=== PATIENT | male | born 1960 | race Caucasian/White ===

== ENCOUNTER 2017-09-01 14:06 | Emergency (ER) | payer BC ==
[2017-09-01] MEDS ORDERED: Sodium Chloride 0.9% 2.5 ML Syringe FLUSH PRN (14:11)
[2017-09-01] MEDS ORDERED: Sodium Chloride 0.9% 10 ML Syringe FLUSH PRN (14:11)
[2017-09-01] MEDS ORDERED: Albuterol/Ipratropium 3.0-0.5 MG/3 ML Neb Soln NEB ONE (14:12)
--- NOTE | 2017-09-01 14:14 | EDM.PDOC ---
ED HPI GENERAL MEDICAL PROBLEM - General Stated Complaint: SOB Time Seen by Provider: 09/01/17 14:07 Source of Information: Reports: Patient History Limitations: Reports: No Limitations - History of Present Illness INITIAL COMMENTS - FREE TEXT/NARRATIVE: History of present illness: []Patient started having fevers, body aches and cough 5 days ago with a temp of 102.5. 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 Patient denies having any cardiac history, leg swelling or chest pain Review of systems: As per history of present illness and below otherwise all systems reviewed and negative. Past medical history: As per history of present illness and as reviewed below otherwise noncontributory. Surgical history: As per history of present illness and as reviewed below otherwise noncontributory. Social history: No reported history of drug or alcohol abuse. Family history: As per history of present illness and as reviewed below otherwise noncontributory. Physical exam: General: Well developed, well nourished in NAD HEENT: Atraumatic, normocephalic, pupils reactive, negative for conjunctival pallor or scleral icterus, mucous membranes moist, throat clear, neck supple, nontender, trachea midline. Lungs: Clear to auscultation, breath sounds equal bilaterally faint expiratory wheezes in the right base no rhonchi or accessory muscle use, chest nontender. Heart: S1S2, regular, negative for clicks, rubs, or JVD. Abdomen: Soft, nondistended, nontender. Negative for masses or hepatosplenomegaly. Negative for costovertebral tenderness. Pelvis: Stable nontender. Genitourinary: Deferred. Rectal: Deferred. Extremities: Atraumatic, negative for cords or calf pain. Neurovascular unremarkable. Neuro: Awake, alert, oriented. Cranial nerves II through XII unremarkable. Cerebellum unremarkable. Motor and sensory unremarkable throughout. Exam nonfocal. Diagnostics: []Chest x-ray and labs are normal negative including troponin for pneumonia and influenza Therapeutics: []DuoNeb given and prednisone started. Impression: []Viral syndrome Plan: []Use albuterol as directed 5 day burst of prednisone start pills tomorrow. Follow-up with Dr. Carballo return to ER if symptoms worsen or change Definitive disposition and diagnosis as appropriate pending reevaluation and review of above. Bilateral Side Chest Pain Pain Score (Numeric/FACES): 4 - Related Data Allergies Allergy/AdvReac Type Severity Reaction Status Date / Time No Known Allergies Allergy Verified 09/01/17 14:15 Home Meds: Home Meds Albuterol [Proair HFA] 2 inh IH Q4H PRN 09/01/17 [History] Fenofibrate 160 mg PO DAILY 09/01/17 [History] Fluticasone/Vilanterol [Breo Ellipta 200-25 Mcg INH] 09/01/17 [History] Losartan [Cozaar] 100 mg PO DAILY 09/01/17 [History] Spironolactone 50 mg PO DAILY 09/01/17 [History] Umeclidinium [place] [Incruse Ellipta] 09/01/17 [History] predniSONE [Prednisone] 20 mg PO DAILY #5 tablet 09/01/17 [Rx] ED ROS GENERAL - Review of Systems Review Of Systems: See Below (See history of present illness) ED EXAM, GENERAL - Physical Exam Exam: See Below (See history of present illness) Course - Vital Signs Last Recorded V/S: Last Vital Signs Temp 99.8 F 09/01/17 14:20 Pulse 100 09/01/17 14:20 Resp 16 09/01/17 14:20 BP 112/60 09/01/17 14:20 Pulse Ox 91 L 09/01/17 14:20 - Orders/Labs/Meds Orders: Active Orders 24 hr Category Date Time Status EKG Documentation Completion [RC] STAT Care 09/01/17 14:11 Active RT Aerosol Therapy [RC] ASDIRECTED Care 09/01/17 14:12 Active CULTURE BLOOD [BC] Stat Lab 09/01/17 14:21 Received CULTURE BLOOD [BC] Stat Lab 09/01/17 14:53 Results Sodium Chloride 0.9% [Saline Flush] Med 09/01/17 14:11 Active 10 ml FLUSH ASDIRECTED PRN Sodium Chloride 0.9% [Saline Flush] Med 09/01/17 14:11 Active 2.5 ml FLUSH ASDIRECTED PRN Blood Culture x2 Reflex Set [OM.PC] Stat Oth 09/01/17 14:12 Ordered Saline Lock Insert [OM.PC] Stat Oth 09/01/17 14:11 Ordered Medication Orders Sodium Chloride (Saline Flush) 10 ml FLUSH ASDIRECTED PRN PRN Reason: Keep Vein Open Sodium Chloride (Saline Flush) 2.5 ml FLUSH ASDIRECTED PRN PRN Reason: Keep Vein Open Labs: Laboratory Tests 09/01/17 09/01/17 Range/Units 14:21 14:21 WBC 8.48 (4.0-11.0) K/uL RBC 4.98 (4.50-5.90) M/uL Hgb 15.9 (13.0-17.0) g/dL Hct 45.9 (38.0-50.0) % MCV 92.2 (80.0-98.0) fL MCH 31.9 (27.0-32.0) pg MCHC 34.6 (31.0-37.0) g/dL RDW Std Deviation 46.9 (28.0-62.0) fl RDW Coeff of Ryan 14 (11.0-15.0) % Plt Count 159 (150-400) K/uL MPV 9.70 (7.40-12.00) fL Neut % (Auto) 70.0 (48.0-80.0) % Lymph % (Auto) 19.1 (16.0-40.0) % [place] % (Auto) 10.3 (0.0-15.0) % Eos % (Auto) 0.4 (0.0-7.0) % Baso % (Auto) 0.2 (0.0-1.5) % Neut # (Auto) 5.9 H (1.4-5.7) K/uL Lymph # (Auto) 1.6 (0.6-2.4) K/uL [place] # (Auto) 0.9 H (0.0-0.8) K/uL Eos # (Auto) 0.0 (0.0-0.7) K/uL Baso # (Auto) 0.0 (0.0-0.1) K/uL Nucleated RBC % 0.0 /100WBC Nucleated RBCs # 0 K/uL Sodium 139 (136-146) mmol/L Potassium 4.2 (3.5-5.1) mmol/L Chloride 108 (98-110) mmol/L Carbon Dioxide 21 (21-31) mmol/L BUN 19 (6.0-23.0) mg/dL Creatinine 0.8 (0.6-1.5) mg/dL Est Cr Clr Drug Dosing 112.36 mL/min Estimated GFR (MDRD) > 60.0 ml/min Glucose 123 H (60-110) mg/dL Calcium 8.9 (8.8-10.8) mg/dL Total Bilirubin 0.8 (0.1-1.5) mg/dL AST 24 (5-40) IU/L ALT 29 (8-54) IU/L Alkaline Phosphatase 59 (40-150) Troponin I < 0.10 (0.0-0.29) NG/ML Total Protein 6.9 (6.0-8.0) g/dL Albumin 3.9 (3.5-5.0) g/dL Globulin 3.0 (2.0-3.5) g/dL Albumin/Globulin Ratio 1.3 (1.3-2.8) Meds: Medications Generic Name Dose Route Start Last Admin Trade Name Freq PRN Reason Stop Dose Admin Sodium Chloride 10 ml 09/01/17 14:11 Saline Flush FLUSH ASDIRECTED PRN Keep Vein Open Sodium Chloride 2.5 ml 09/01/17 14:11 Saline Flush FLUSH ASDIRECTED PRN Keep Vein Open Discontinued Medications Generic Name Dose Route Start Last Admin Trade Name Freq PRN Reason Stop Dose Admin Albuterol/Ipratropium 3 ml 09/01/17 14:12 09/01/17 14:59 Duoneb 3.0-0.5 Mg/3 Ml NEB 09/01/17 14:13 3 ml ONETIME ONE Administration Prednisone 60 mg 09/01/17 15:22 Prednisone PO 09/01/17 15:23 ONETIME ONE Departure - Departure Time of Disposition: 15:28 Disposition: Home, Self-Care 01 Condition: Good Clinical Impression: Viral syndrome, Cough due to bronchospasm - Discharge Information Prescriptions: predniSONE [Prednisone] 20 mg PO DAILY #5 tablet Referrals: PCP,None [Primary Care Provider] - Additional Instructions: The following information is given to patients seen in the emergency department who are being discharged to home. This information is to outline your options for follow-up care. We provide all patients seen in our emergency department with a follow-up referral. The need for follow-up, as well as the timing and circumstances, are variable depending upon the specifics of your emergency department visit. If you don't have a primary care physician on staff, we will provide you with a referral. We always advise you to contact your personal physician following an emergency department visit to inform them of the circumstance of the visit and for follow-up with them and/or the need for any referrals to a consulting specialist. The emergency department will also refer you to a specialist when appropriate. This referral assures that you have the opportunity for follow-up care with a specialist. All of these measure are taken in an effort to provide you with optimal care, which includes your follow-up. Under all circumstances we always encourage you to contact your private physician who remains a resource for coordinating your care. When calling for follow-up care, please make the office aware that this follow-up is from your recent emergency room visit. If for any reason you are refused follow-up, please contact the [facility] Emergency Department at and asked to speak to the emergency department charge nurse. Follow-up with Dr. Carballo next week, prednisone as directed use inhalers and encourage deep breathing and cough. The ER if symptoms worsen or change Tylenol Motrin for fevers. [facility] [address] [place] [id number] - My Orders Last 24 Hours: My Active Orders 09/01/17 14:11 EKG Documentation Completion [RC] STAT Sodium Chloride 0.9% [Saline Flush] 10 ml FLUSH ASDIRECTED PRN Sodium Chloride 0.9% [Saline Flush] 2.5 ml FLUSH ASDIRECTED PRN Saline Lock Insert [OM.PC] Stat 09/01/17 14:12 RT Aerosol Therapy [RC] ASDIRECTED Blood Culture x2 Reflex Set [OM.PC] Stat 09/01/17 14:21 CULTURE BLOOD [BC] Stat 09/01/17 14:53 CULTURE BLOOD [BC] Stat - Assessment/Plan Last 24 Hours: My Active Orders 09/01/17 14:11 EKG Documentation Completion [RC] STAT Sodium Chloride 0.9% [Saline Flush] 10 ml FLUSH ASDIRECTED PRN Sodium Chloride 0.9% [Saline Flush] 2.5 ml FLUSH ASDIRECTED PRN Saline Lock Insert [OM.PC] Stat 09/01/17 14:12 RT Aerosol Therapy [RC] ASDIRECTED Blood Culture x2 Reflex Set [OM.PC] Stat 09/01/17 14:21 CULTURE BLOOD [BC] Stat 09/01/17 14:53 CULTURE BLOOD [BC] Stat
[2017-09-01 15:11] LABS: CHLORIDE,CL 108 mmol/L (98-110); SODIUM,NA 139 mmol/L (136-146)
--- NOTE | 2017-09-01 15:20 | CR ---
EXAMINATION: Portable chest radiograph. HISTORY: Shortness of breath. FINDINGS: The trachea is midline. The cardiomediastinal silhouette is within normal limits. No pulmonary infilt rates, effusions or pneumothorax. Osseous structures appear unremarkable. IMPRESSION: No acute cardiopulmonary process.
[2017-09-01] MEDS ORDERED: predniSONE 20 MG Tab PO ONE (15:22)
== END 2017-09-01 15:40 | disposition home or self-care (01) ==
LOC: MW.ED 14:06
DX: J98.01 Acute bronchospasm (principal); B34.9 Viral infection, unspecified; Z79.899 Other long term (current) drug therapy
CPT/HCPCS: 36415; 71045; 80053; 84484; 85025; 87040; 87804; 93005; 94640; 99285; A9270; 99284

== ENCOUNTER 2017-10-06 07:50 | Day surgery (SDC) | payer BC ==
[~2017-10-06 07:50] MED LIST: Lactated Ringers 1,000 ML IV SCH; Lidocaine 2% 5 ML SDV ONE; Propofol 200 MG/20 ML SDV ONE; fentaNYL 100 MCG/2 ML SDV ONE
[2017-10-06] MEDS ORDERED: Albuterol/Ipratropium 3.0-0.5 MG/3 ML Neb Soln NEB ONE (08:26)
--- NOTE | 2017-10-06 08:33 | PCM.PREANE ---
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) - Physical Assessment NPO Status Date: 10/05/17 NPO Status Time: 23:00 O2 Sat by Pulse Oximetry: 93 Respiratory Rate: 18 Vital Signs: Last Vital Signs Temp 96.6 F 10/06/17 08:16 Pulse 80 10/06/17 08:16 Resp 18 10/06/17 08:16 BP 132/74 10/06/17 08:16 Pulse Ox 93 L 10/06/17 08:16 Height: 6 ft 1 in Weight: 360 lb ASA Class: 3 Mental Status: Alert & Oriented x3 Airway Class: Mallampati = 4 Dentition: Reports: Normal Dentition Thyro-Mental Finger Breadths: 2 Mouth Opening Finger Breadths: 3 ROM/Head Extension: Limited/Partial Lungs: Wheezing (present even with several coughs - duoneb treatment pre procedure ordered) Cardiovascular: Regular Rate - Allergies Allergies/Adverse Reactions: Allergies Allergy/AdvReac Type Severity Reaction Status Date / Time No Known Allergies Allergy Verified 10/02/17 07:37 - Blood Blood Available: No Product(s) Available: None - Anesthesia Plan Pre-Op Medication Ordered: Other (duoneb) - Acknowledgements Anesthesia Type Planned: MAC Pt an Appropriate Candidate for the Planned Anesthesia: Yes Alternatives and Risks of Anesthesia Discussed w Pt/Guardian: Yes Pt/Guardian Understands and Agrees with Anesthesia Plan: Yes PreAnesthesia Questionnaire HEENT History: Reports: Cataract, Hard of Hearing Other HEENT History: has bilateral hearing aides Cardiovascular History: Reports: High Cholesterol, Hypertension Respiratory History: Reports: Asthma, COPD, Sleep Apnea Other Respiratory History: uses CPAP, uses rescue inhaler daily Musculoskeletal History: Reports: Back Pain, Chronic, Fracture, Gout Other Musculoskeletal History: hx of fx right wrist Neurological History: Reports: Concussion Endocrine/Metabolic History: Reports: Obesity/BMI 30+ - Past Surgical History HEENT Surgical History: Reports: Cataract Surgery, Tonsillectomy GI Surgical History: Reports: Appendectomy Neurological Surgical History: Reports: Laminectomy Musculoskeletal Surgical History: Reports: Arthroscopic Knee - SUBSTANCE USE Smoking Status *Q: Current Every Day Smoker Tobacco Use Within Last Twelve Months: Cigarettes Recreational Drug Use History: Yes Recreational Drug Last Use: 30 years ago - HOME MEDS Home Medications: Home Meds Albuterol [Proair HFA] 2 inh IH Q4H PRN 09/01/17 [History] Fenofibrate 160 mg PO DAILY 09/01/17 [History] Losartan [Cozaar] 100 mg PO BEDTIME 09/01/17 [History] Spironolactone 50 mg PO DAILY 09/01/17 [History] Colchicine 0.6 mg PO DAILY 10/02/17 [History] Cyclobenzaprine HCl 10 mg PO TID PRN 10/02/17 [History] Fenofibrate 160 mg PO DAILY 10/02/17 [History] Hydrocodone/Acetaminophen [Mosinee 10-325 Tablet] 1 tab PO ASDIRECTED PRN [History] Tadalafil [Cialis] 20 mg PO ASDIRECTED PRN 10/02/17 [History] Umeclidinium [place] [Incruse Ellipta] 1 puff INH DAILY 10/02/17 [History] guaiFENesin/Dextromethorphan [Mucinex DM ER 1,200-60 MG] 1 tab PO ASDIRECTED 04/13 [History] - CURRENT (IN HOUSE) MEDS Current Meds: Current Medications Albuterol/Ipratropium (Duoneb 3.0-0.5 Mg/3 Ml) 3 ml NEB ONETIME ONE Stop: 10/06/17 08:27 Lactated Ringer's (Ringers, Lactated) 1,000 mls @ 125 mls/hr IV ASDIRECTED HUMBLE Last Admin: 10/06/17 08:16 Dose: 125 mls/hr Discontinued Medications Fentanyl (Sublimaze) Confirm Administered Dose 100 mcg .ROUTE .STK-MED ONE Stop: 10/06/17 06:57 Lidocaine (Xylocaine-Mpf 2%) Confirm Administered Dose 5 ml .ROUTE .STK-MED ONE Stop: 10/06/17 06:56 Propofol (Diprivan 20 Ml) Confirm Administered Dose 400 mg .ROUTE .STK-MED ONE Stop: 10/06/17 06:57
[2017-10-06] MEDS ORDERED: Propofol 200 MG/20 ML SDV ONE (08:53)
[2017-10-06] MEDS ORDERED: ePHEDrine 50 MG/ML SDV ONE (09:15)
--- NOTE | 2017-10-06 09:37 | PCM.OPNOTE ---
- General Post-Op/Procedure Note Date of Surgery/Procedure: 10/06/17 Operative Procedure(s): colonoscopy snare polypectomy Findings: see dict [id number] Pre Op Diagnosis: scrn colonoscopy Post-Op Diagnosis: polyps Anesthesia Technique: Moderate Sedation Primary Surgeon: Romeo Worthington Pathology: 3 3 -4 mm sessile polyp at 1.6 m close to cecum, and 1 4 mm sessile at 55cm; 1.5 cm X2 pedunculated at 25 cm and 15 cm Complications: None Condition: Good
--- NOTE | 2017-10-06 09:53 | PCM48HPAN ---
Post Anesthesia Note - EVALUATION WITHIN 48HRS OF ANESTHETIC Vital Signs in Normal Range: Yes Patient Participated in Evaluation: Yes Respiratory Function Stable: Yes Airway Patent: Yes Cardiovascular Function Stable: Yes Hydration Status Stable: Yes Pain Control Satisfactory: Yes Nausea and Vomiting Control Satisfactory: Yes Mental Status Recovered: Yes Resp Rate: 10
--- NOTE | 2017-10-06 09:53 | PCM.POSTAN ---
POST ANESTHESIA ASSESSMENT - MENTAL STATUS Mental Status: Alert, Oriented - RESPIRATORY Respiratory Status: Respiratory Rate WNL, Airway Patent, O2 Saturation Stable - CARDIOVASCULAR CV Status: Pulse Rate WNL, Blood Pressure Stable - GASTROINTESTINAL GI Status: No Symptoms - POST OP HYDRATION Hydration Status: Adequate & Stable
--- NOTE | 2017-10-06 14:14 | OR ---
SURGEON: Romeo Worthington MD DATE OF PROCEDURE: 10/06/2017 PREOPERATIVE DIAGNOSIS: Screening colonoscopy. POSTOPERATIVE DIAGNOSIS: Large colon polyp. PROCEDURE PERFORMED: Colonoscopy with snare polypectomy. PROCEDURE IN DETAIL: The patient was taken to the endoscopy room. A time out was called, patient identified, and procedure identified. Diprivan was then administrated. Patient went from awake to sleep, hearing doctor talking or door closing is normal. Perineum inspection and digital examination were then performed. A well- lubricated colonoscope was gently inserted through the rectum, advanced past the rectosigmoid junction, the descending colon, splenic flexure, transverse colon, hepatic flexure, ascending colon, arrived to the cecum. Cecum was identified as dictated in the finding. Then the scope was carefully withdrawn while attention was paid to the mucosal surface for any abnormality. Air will be sucked out during the scope withdrawal. At the rectum, retroflexed to examine any rectal diseases, fistula or hemorrhoids. During mucosal examination, an abnormality or polyp encountered. Using snare equipment, the abnormality or the polyp was then snared off using electrocautery. The Patient tolerated procedure well. There were no intraoperative complications, and Dr. Worthington was present throughout the whole procedure. FINDINGS: 1. The patient has a BMI of 47 and with airway problems, using nebulizer, the patient would benefit to have a colonoscopy done intubated on the next one. 2. The patient was sedated with DIRECTOR AMBULATORY and Diprivan, and bowel prep is marginally acceptable. Large amount of liquid stool obscures the study. This is very compromised study, requiring a lot of irrigation. Colon is rather straightforward. Cecum indicated by ileocecal fold, one-to-one indentation, light emittance is not observed. Appendiceal orifice is observed. Scope pulling out with constant, large amount of irrigation because the bowel prep again did compromise the study. The patient has many polyps and several small ones, about 3-4 mm, removed with cold biopsy forceps. One at 55 distance when the scope goes in and 3 at the distance of 1.6 at the end of the scope, very close to the cecum, a little bit past or distal to the cecum and 3 of them removed with cold biopsy forceps, 3-4 mm sessile polyps. The patient has 2 large polyps about 2 cm, 1.5 cm at the distance of 25 cm and 15 cm. Both removed with snare polypectomy. Pedunculated polyp with a long stalk, captured and removed by a snare polypectomy and sent for pathology. With the patient's compromised study and poor bowel prep, there is no doubt that maybe some of the polyps could have hidden below the feces or the liquid stool. No diverticulosis, mass, growth, inflammation, stricture, ulceration, AV malformation, bleeding. None of those. The patient has mild internal hemorrhoids and no external hemorrhoids. With the patient's BMI of 47, if the patient needs surgery, probably will need to be performed in a tertiary care center, and the next colonoscopy should be done with intubation easier. If all goes right, the patient should repeat colonoscopy 18 months from today or if clinically indicated otherwise because of the large amount of polyps and large polyp. TURNER / TOMAS /[id number]
== END 2017-10-06 10:30 | disposition home or self-care (01) ==
LOC: MW.SDS 07:50
PROVIDERS: ATTEND Surgery
DX: Z12.11 Encounter for screening for malignant neoplasm of colon (principal); D12.6 Benign neoplasm of colon, unspecified; K63.5 Polyp of colon; K64.8 Other hemorrhoids; J44.9 Chronic obstructive pulmonary disease, unspecified; I10 Essential (primary) hypertension; E78.00 Pure hypercholesterolemia, unspecified; G47.30 Sleep apnea, unspecified; Z79.899 Other long term (current) drug therapy; F17.210 Nicotine dependence, cigarettes, uncomplicated
CPT/HCPCS: 45380; 45385; 94640; J3010; J7120; 00812; 88305; J2704